=== PATIENT | female | born 1975 | race Two or more races ===

== ENCOUNTER 2020-10-03 12:10 | Emergency (ER) | payer SELFPAY ==
[~2020-10-03] VITALS: Ht 160 cm; Wt 147.7 kg
[2020-10-03 12:15] VITALS: BP 154/96
[2020-10-03 12:52] LABS: BASOPHILS % (AUTO) 1 % (0-1); EOSINOPHILS % (AUTO) 2 % (1-7); LYMPHOCYTES % (AUTO) 31 % (22-44); MEAN CORPUSCULAR HEMOGLOBIN 32.3 pg (27.0-34.8); MEAN CORPUSCULAR HGB CONC 34.2 g/dL (32.4-35.8); MONOCYTES % (AUTO) 7 % (2-9); NEUTROPHILS % (AUTO) 59 % (42-75); PLATELET COUNT 288 x10^3/uL (130-400); RED BLOOD COUNT 4.44 x10^6/uL (3.82-5.3); RED CELL DISTRIBUTION WIDTH 13.3 % (9.6-15.2)
[2020-10-03 13:04] LABS: ALBUMIN 3.5 g/dL (3.4-5.0); ANION GAP 5 mmol/L (5-15); CALCIUM 8.9 mg/dL (8.5-10.1); CHLORIDE 109 mmol/L (98-107)
[2020-10-03 13:09] LABS: ALANINE AMINOTRANSFERASE 38 U/L (12-78); ALKALINE PHOSPHATASE 91 U/L (45-117); BILIRUBIN,TOTAL 0.4 mg/dL (0.2-1.0); CREATININE 0.68 mg/dL (0.55-1.02); TOTAL PROTEIN 8.1 g/dL (6.4-8.2)
[2020-10-03 16:02] LABS: MICROSCOPIC AUTO
--- NOTE | 2020-10-03 17:24 | NUR ---
ERMD AT BEDSIDE FOR ASSESSMENT.
== END 2020-10-03 18:11 | disposition home or self-care (01) ==
LOC: ED 17:00
DX: N30.00 Acute cystitis without hematuria (principal); N91.2 Amenorrhea, unspecified; R30.9 Painful micturition, unspecified; I10 Essential (primary) hypertension
CPT/HCPCS: 36415; 80053; 81001; 84703; 85025; 87077; 87086; 87186; 99283

== ENCOUNTER 2020-10-14 14:18 | Emergency (ER) | payer MEDICAID, OTHER ==
--- NOTE | 2020-10-14 15:31 | NUR ---
MEDIA SERVICES COORDINATOR: NIL
== END 2020-10-14 17:49 | disposition left against medical advice (07) ==
LOC: ED 15:50
DX: R21 Rash and other nonspecific skin eruption (principal); Z53.21 Procedure and treatment not carried out due to patient leaving prior to being seen by health care provider